=== PATIENT | female | born 1945 ===

== ENCOUNTER 2019-09-28 06:00 | Outpatient (CLI) | payer OTHER ==
[2019-09-30] MEDS ORDERED: FORTAMET500 MG PO (10:35)
[2019-09-30] MEDS ORDERED: BISOPROLOL PO (10:37)
[2019-09-30] MEDS ORDERED: VALSARTAN160 MG PO (10:38)
== END 2019-09-28 06:05 | disposition home or self-care (01) ==
LOC: LAB 06:00 → ADM 09-30 10:45 → CIR.AMB 10-02 07:00 → ADM 10-02 10:45 → EDBD 10-02 10:45 → EDSTATUS 10-02 10:45
PROVIDERS: ATTEND Colon & Rectal Surgery
DX: I10 Essential (primary) hypertension (principal); K60.5 Anorectal fistula; K64.2 Third degree hemorrhoids; K62.4 Stenosis of anus and rectum; K92.1 Melena; Z20.828 Contact with and (suspected) exposure to other viral communicable diseases; Z01.810 Encounter for preprocedural cardiovascular examination; Z01.812 Encounter for preprocedural laboratory examination

== ENCOUNTER → 2019-09-28 07:35 | Outpatient (CLI) | payer OTHER ==
[~2019-09-28 07:35] MED LIST: BISOPROLOL PO; FORTAMET500 MG PO; VALSARTAN160 MG PO
== END | disposition home or self-care (01) ==
LOC: RAD 07:35
PROVIDERS: ATTEND Colon & Rectal Surgery
DX: K60.5 Anorectal fistula (principal); K64.2 Third degree hemorrhoids; K62.4 Stenosis of anus and rectum; K92.1 Melena